=== PATIENT | male | born 1965 | race Caucasian/White ===

== ENCOUNTER 2018-10-02 14:42 | Emergency (ER) | payer SELFPAY ==
[~2018-10-02] VITALS: Ht 157.5 cm; Wt 53.1 kg
--- NOTE | 2018-10-02 14:42 | NUR ---
PATIENT BIBA TO ER BED 4. PATIENT WITH SWATCH PASTER
[2018-10-02 14:50] VITALS: BP 128/77
--- NOTE | 2018-10-02 15:03 | NUR ---
PT BIBA FOR [facility] AT [facility] BECAUSE OF HITTING HIS HEAD AGAINIST COFFEE TABLE IN [facility] PER THE FOUNDER / CEO SARITHA LUOG. THE STAFF CALLED 911 AND BROUGHT TO ER. 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 PT RESIDES AT [address] [place] [address], [id number]. FOUNDER / CEO FROM THE HOME CARE AT THE BEDSIDE. PTLYING COMFORTABLY IN HIS BED. CONNECTED TO MONITOR, PT VS STABLE. SIDE RAILS PADDED, UPX2. BED AT THE LOWER POSITION. HX:AUTISM ALLAERGY: HALOPERIDOL, THIORIZADINE
[2018-10-02] MEDS ORDERED: diphenhydrAMINE 50 MG/ML VIAL IM ONE (15:40)
--- NOTE | 2018-10-02 16:06 | NUR ---
PT SLIGHTLY AGIATED. REFUSE TO STAY IN BED. GAVE BENADRYL . CLIENT EXPERIENCE MANAGER AT THE BEDISE. DR. BURRELL MADE AWARE OF PT AGITATION. STATES WILL GIVE ATIVAN IN 30 MIN .
--- NOTE | 2018-10-02 16:36 | NUR ---
CALLED CT, PT LYING ON HIS BED COMFORTABLY. WELDER SHIELDED METAL ARC AT THE BEDSIDE.
[2018-10-02] MEDS ORDERED: LORazepam 2 MG/ML VIAL IM ONE (16:45)
--- NOTE | 2018-10-02 16:52 | NUR ---
PT ADMINISTERED MEDS ORDERED. PT RESTLESS, MOVING ABRUBLTY. SERVICE CREW SUPERVISOR AT THE BEDSIDE. WILL REASSESS IN ONE HOUR.
--- NOTE | 2018-10-02 16:55 | NUR ---
PT WENT FOR CT. PLATE PRINTER WITH THE PT.
[2018-10-02] MEDS ORDERED: LORazepam 2 MG/ML VIAL ONE (16:57)
[2018-10-02 17:46] VITALS: BP 119/69
--- NOTE | 2018-10-02 17:46 | NUR ---
Patient discharged with v/s stable. Written and verbal after care instructions given and explained. Patient alert, oriented and verbalized understanding of instructions. Wheel Chair Assisted with to car. All questions addressed prior to discharge. ID band removed. Patient advised to follow up with PMD. Opportunity to ask questions provided and answered. PT WENT HOME WITH MARKET MANAGER ASHLIE NICHOLS . EMT HELPED TO WHEEEL OUT THE PT.PT STABLE.
== END 2018-10-02 17:46 | disposition home or self-care (01) ==
LOC: MED 14:42
DX: S00.83XA Contusion of other part of head, initial encounter (principal); W22.03XA Walked into furniture, initial encounter; Y93.89 Activity, other specified; Y92.89 Other specified places as the place of occurrence of the external cause; Y99.8 Other external cause status
CPT/HCPCS: 70450; 96372; 99284; J1200; J2060